=== PATIENT | male | born 2000 | race Hispanic/Latino ===

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

== ENCOUNTER 2021-09-06 14:05 | Emergency (ER) | payer SELFPAY | END 2021-09-06 14:27 | disposition home or self-care (01) | LOC: ERS 14:05 | DX: S01.01XD Laceration without foreign body of scalp, subsequent encounter (principal); F17.210 Nicotine dependence, cigarettes, uncomplicated; W22.8XXD Striking against or struck by other objects, subsequent encounter ==